=== PATIENT | female | born 1990 | race Caucasian/White ===

== ENCOUNTER 2017-10-07 17:07 | Inpatient (IN) | payer BC ==
[2017-10-07] MEDS ORDERED: Misoprostol 25 MCG (1/4 of 100 MCG) Tab VAG PRN (17:50)
[2017-10-07] MEDS ORDERED: Terbutaline 1 MG/ML SDV SUBCUT PRN (17:50)
[2017-10-07] MEDS ORDERED: Methylergonovine 0.2 MG/1 ML Amp IM PRN (18:00)
[2017-10-07] MEDS ORDERED: Nalbuphine 10 MG/1 ML Vial IVPUSH PRN (18:00)
[2017-10-07] MEDS ORDERED: Misoprostol 25 MCG (1/4 of 100 MCG) Tab VAG SCH (18:00)
[2017-10-07] MEDS ORDERED: Butorphanol 1 MG/ML SDV IVPUSH PRN (18:00)
[2017-10-07] MEDS ORDERED: Water For Irrigation,Sterile 1,000 ML Container IRR PRN (18:00)
[2017-10-07] MEDS ORDERED: Oxytocin/0.9 % Sodium Chloride 30 UNIT/500 ML BAG IV SCH ×2 (18:00)
[2017-10-07] MEDS ORDERED: Carboprost Tromethamine 250 MCG/1 ML Amp IM PRN (18:00)
[2017-10-07] MEDS ORDERED: Misoprostol 200 MCG Tab PO PRN (18:00)
[2017-10-07] MEDS ORDERED: Sodium Chloride 0.9% 2.5 ML Syringe FLUSH PRN (18:00)
[2017-10-07] MEDS ORDERED: Sodium Chloride 0.9% 10 ML Syringe FLUSH PRN (18:00)
[2017-10-07] MEDS ORDERED: Lidocaine 1% 50 ML MDV INJECT PRN (18:00)
[2017-10-07] MEDS ORDERED: Misoprostol 25 MCG (1/4 of 100 MCG) Tab PO SCH (18:00)
[2017-10-07] MEDS: Lactated Ringers 1,000 ML IV SCH (18:25)
[2017-10-08] MEDS: Lactated Ringers 1,000 ML IV SCH ×5 (04:50→18:05)
[2017-10-08] MEDS ORDERED: Ondansetron 4 MG/2 ML SDV IVPUSH ONE (08:54)
[2017-10-08] MEDS: Metoprolol Succinate 25 MG Tab.ER PO SCH ×2 (10:52→21:52)
[2017-10-08] MEDS ORDERED: Ropivacaine HCl/PF 100 ML ONE (11:18)
[2017-10-08] MEDS ORDERED: fentaNYL 100 MCG/2 ML SDV ONE (11:18)
--- NOTE | 2017-10-08 11:22 | PCM.PREANE ---
Preanesthetic Assessment - Anesthesia/Transfusion/Family Hx Anesthesia History: Prior Anesthesia Without Reaction Transfusion History: No Prior Transfusion(s) - Review of Systems General: No Symptoms Pulmonary: No Symptoms Cardiovascular: No Symptoms Gastrointestinal: No Symptoms Neurological: No Symptoms Other: Reports: None - Physical Assessment Pulse: 82 Blood Pressure: 120/50 Vital Signs: Last Vital Signs Temp Pulse 82 10/08/17 10:52 Resp BP 120/50 L 10/08/17 10:52 Pulse Ox Height: 5 ft 6 in Weight: 77.564 kg ASA Class: 2 Mental Status: Alert & Oriented x3 Airway Class: Mallampati = 2 Dentition: Reports: Normal Dentition Thyro-Mental Finger Breadths: 3 Mouth Opening Finger Breadths: 3 ROM/Head Extension: Full Lungs: Clear to Auscultation, Normal Respiratory Effort Cardiovascular: Regular Rate, Regular Rhythm - Lab Values: Laboratory Last Values WBC 10.24 K/uL (4.0-11.0) 10/07/17 18:18 RBC 4.61 M/uL (4.30-5.90) 10/07/17 18:18 Hgb 11.6 g/dL (12.0-16.0) L 10/07/17 18:18 Hct 34.9 % (36.0-46.0) L 10/07/17 18:18 MCV 75.7 fL (80.0-98.0) L 10/07/17 18:18 MCH 25.2 pg (27.0-32.0) L 10/07/17 18:18 MCHC 33.2 g/dL (31.0-37.0) 10/07/17 18:18 RDW Std Deviation 34.7 fl (28.0-62.0) 10/07/17 18:18 RDW Coeff of [place] 13 % (11.0-15.0) 10/07/17 18:18 Plt Count 160 K/uL (150-400) 10/07/17 18:18 MPV 11.50 fL (7.40-12.00) 10/07/17 18:18 Nucleated RBC % 0.0 /100WBC 10/07/17 18:18 Nucleated RBCs # 0 K/uL 10/07/17 18:18 Blood Type O NEGATIVE 10/07/17 18:18 Antibody Screen NEGATIVE 10/07/17 18:18 - Allergies Allergies/Adverse Reactions: Allergies Allergy/AdvReac Type Severity Reaction Status Date / Time No Known Allergies Allergy Verified 10/07/17 17:40 - Acknowledgements Anesthesia Type Planned: Epidural Pt an Appropriate Candidate for the Planned Anesthesia: Yes Alternatives and Risks of Anesthesia Discussed w Pt/Guardian: Yes Pt/Guardian Understands and Agrees with Anesthesia Plan: Yes PreAnesthesia Questionnaire HEENT History: Reports: None Cardiovascular History: Reports: Other (See Below) Other Cardiovascular History: POTS Respiratory History: Reports: None Gastrointestinal History: Reports: GERD Genitourinary History: Reports: None 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: 0 LMP (Approximate): Musculoskeletal History: Reports: None Neurological History: Reports: None Psychiatric History: Reports: None Endocrine/Metabolic History: Reports: None Hematologic History: Reports: None Immunologic History: Reports: None Oncologic (Cancer) History: Reports: None Dermatologic History: Reports: None - Infectious Disease History Infectious Disease History: Reports: Chicken Pox - Past Surgical History HEENT Surgical History: Reports: Other (See Below) Other HEENT Surgeries/Procedures: [place] teeth extraction Female Surgical History: Reports: Breast Implant - SUBSTANCE USE Smoking Status *Q: Never Smoker Second Hand Smoke Exposure: No Recreational Drug Use History: No - CURRENT (IN HOUSE) MEDS Current Meds: Current Medications Butorphanol Tartrate (Stadol) 1 mg IVPUSH Q1H PRN PRN Reason: Pain Last Admin: 10/08/17 09:02 Dose: 1 mg Carboprost Tromethamine (Hemabate Ds) 250 mcg IM ASDIRECTED PRN PRN Reason: Post Hemorrhage Oxytocin/Sodium Chloride (Oxytocin 30 Unit/500 Ml-Ns) 30 unit in 500 mls @ 2 mls/hr IV TITRATE MILEY; 2 MUNITS/MIN PRN Reason: Protocol Last Titration: 10/08/17 10:41 Dose: 0 munits/min, 0 mls/hr Lactated Ringer's (Ringers, Lactated) 1,000 mls @ 80 mls/hr IV ASDIRECTED MILEY Last Admin: 10/08/17 10:29 Dose: 80 mls/hr Oxytocin/Sodium Chloride (Oxytocin 30 Unit/500 Ml-Ns) 30 unit in 500 mls @ 500 mls/hr IV TITRATE MILEY Lidocaine HCl (Xylocaine 1%) 50 ml INJECT .ONCE PRN PRN Reason: Laceration repair Methylergonovine Maleate (Methergine) 0.2 mg IM ASDIRECTED PRN PRN Reason: Post Hemorrhage Metoprolol Succinate (Toprol Xl) 12.5 mg PO BID MILEY Stop: 10/11/17 10:00 Last Admin: 10/08/17 10:52 Dose: 12.5 mg Misoprostol (Cytotec) 25 mcg VAG .ONCE MILEY Last Admin: 10/07/17 18:41 Dose: 25 mcg Misoprostol (Cytotec) 25 mcg VAG Q6H PRN PRN Reason: Cervical Ripening Last Admin: 10/08/17 00:34 Dose: 25 mcg Misoprostol (Cytotec) 25 mcg PO .ONCE MILEY Last Admin: 10/07/17 18:41 Dose: 25 mcg Misoprostol (Cytotec) 200 mcg PO .ONCE PRN PRN Reason: Post Hemorrhage Nalbuphine HCl (Nubain) 10 mg IVPUSH Q1H PRN PRN Reason: Pain (severe 7-10) Last Admin: 10/08/17 10:02 Dose: 10 mg Sodium Chloride (Saline Flush) 10 ml FLUSH ASDIRECTED PRN PRN Reason: Keep Vein Open Sodium Chloride (Saline Flush) 2.5 ml FLUSH ASDIRECTED PRN PRN Reason: Keep Vein Open Sterile Water (Sterile Water For Irrigation) 1,000 ml IRR ASDIRECTED PRN PRN Reason: delivery Terbutaline Sulfate (Brethine) 0.25 mg SUBCUT ASDIRECTED PRN PRN Reason: Tacysystole Discontinued Medications Ondansetron HCl (Zofran) 4 mg IVPUSH ONETIME ONE Stop: 10/08/17 08:55 Last Admin: 10/08/17 09:06 Dose: 4 mg
[2017-10-08] MEDS ORDERED: ePHEDrine 50 MG/ML SDV ONE (11:43)
[2017-10-08] MEDS ORDERED: Sodium Chloride 0.9% Irrigation 500 ML Container IRR PRN (16:54)
[2017-10-08] MEDS ORDERED: Sodium Chloride 0.9% Irrigation 1,000 ML Container IRR PRN (17:00)
[2017-10-08] MEDS ORDERED: ceFAZolin 2 GM in Premix Bag 1 BAG IV ONE (21:17)
[2017-10-08] MEDS ORDERED: Ibuprofen 400 MG Tab PO PRN (21:17)
[2017-10-08] MEDS ORDERED: Witch Hazel Medicated Pads 40/Jar TOP PRN (21:17)
[2017-10-08] MEDS ORDERED: Lanolin 100% Cream 7 GM Tube TOP PRN (21:17)
[2017-10-08] MEDS ORDERED: Bisacodyl 10 MG Supp RECTAL PRN (21:17)
[2017-10-08] MEDS ORDERED: Acetaminophen 500 MG Tab PO PRN ×2 (21:17)
[2017-10-08] MEDS ORDERED: Benzocaine/Menthol 20%-0.5% Spray 78 GM Cannister TOP PRN (21:17)
[2017-10-08] MEDS: Docusate Sodium 100 MG Cap PO PRN (21:51)
[2017-10-08] MEDS: Ibuprofen 800 MG Tab PO PRN (21:53)
[2017-10-09] MEDS: oxyCODONE 5 MG Tab PO PRN ×3 (01:32→22:53)
[2017-10-09] MEDS: Docusate Sodium 100 MG Cap PO PRN (06:47)
--- NOTE | 2017-10-09 08:28 | OR ---
SURGEON: Tanya Moreland MD DATE OF PROCEDURE: 10/08/2017 PREOPERATIVE DIAGNOSES: 1. Postdates at 41 weeks and 6 days. 2. Asymmetric growth. POSTOPERATIVE DIAGNOSES: 1. Postdates at 41 weeks and 6 days. 2. Asymmetric growth. 3. Delivered. PROCEDURE:. 1. Spontaneous vaginal delivery. 2. Manual removal of placenta 3. Repair of perineal lacerations. ANESTHESIA: Epidural. ESTIMATED BLOOD LOSS: 200 mL. COMPLICATIONS: None. DISPOSITION: Mother and baby stable in Labor and Delivery room, bonding. FINDINGS: Male , weight 3170 g, score 7 and 8 at 1 and 5 minutes respectively. Grossly normal small placenta with flimsy, thin 3-vessel cord. Ist degree vaginal laceration and left labial laceration. BRIEF HISTORY: The patient is a 27-year-old, primigravida, who was admitted at 41 weeks and 5 days gestation for induction of labor secondary to postdates. The patient's care was complicated by asymmetric growth; overall growth was normal on the 30the percentile,but the AC was lagging behind at less than 3rd percentile. surveillance was always reassuring. GBS negative. The patient declined induction earlier than than 42 weeks gestation. She also was on B- blockers for Postural Orthostatic Hypotension and Paraoxysmal Supraventricular tachycardia- which controlled her symptoms well. The patient was admitted overnight for induction of labor. She received Cytotec for cervical ripening and oxytocin infusion was commenced in the early hours of the morning. Artificial rupture of membranes was performed at 2cm dilatated, 70% effacement- with clear amniotic fluid noted. Throughout the day, we had to stop the oxytocin infusion several times, due to recurrent deep variable decelerations with occasional late decelerations. The maximum Pitocin that we were able to get to was 4 milliunits per minute. Despite irregular contractions of every 1 to 4 minutes, the patient made steady progress and slowly progressed to 8 cm, at this time due to recurrent variable decelerations, amnioinfusion was commenced. With amnioinfusion, the strip improved, and she eventually got to full dilatation. She commenced active pushing. She pushed a little bit over an hour, bringing the head down to a +4 station and was set up for delivery in modified dorsolithotomy position. [facility] Manager closer on, Dr Kingston, was called for delivery DESCRIPTION OF PROCEDURE: She had a spontaneous vaginal delivery of a live male infant in direct occipital anterior position, no nuchal cord, clear amniotic fluid at delivery. Anterior and posterior shoulders and the rest of the baby were delivered without difficulty. The baby was stunned at delivery, Dr Kingston began stimulating him on the perineum and the cord was quickly double clamped and cut and he was immediately taken to the warmer With delivery of the infant, oxytocin infusion was commenced for active management of third stage of labor. Cord blood and gas samples were obtained. The placenta was then delivered by manual extraction, due to a partial separation of the very flimsy cord. Uterine cavity was empty. The placenta, although it was small and rugged, appeared to be complete and intact. Examination of the perineum revealed a left labial laceration and a midline Ist degree vaginal laceration. Uterine massage was performed. The uterus was found to be well contracted below the umbilicus. These lacerations were repaired with 3-0 Vicryl sutures and were hemostatic post repair. The patient tolerated the procedure well. Sponge, instrument, and needle counts were correct at the end of the delivery. ADUMVIV / MODL /[id number] KERON
[2017-10-09] MEDS: Metoprolol Succinate 25 MG Tab.ER PO SCH ×2 (09:07→21:39)
[2017-10-09] MEDS: Ibuprofen 800 MG Tab PO PRN ×3 (09:13→22:53)
--- NOTE | 2017-10-09 10:10 | PCM.PNPP ---
- General Info Date of Service: 10/09/17 Functional Status: Reports: Pain Controlled, Tolerating Diet, Ambulating, Urinating - Review of Systems General: Denies: Fever, Chills HEENT: Denies: Headaches Pulmonary: Denies: Shortness of Breath, Pleuritic Chest Pain, Cough Cardiovascular: Denies: Chest Pain, Palpitations, Dyspnea on Exertion Gastrointestinal: Denies: Abdominal Pain Genitourinary: Denies: Dysuria, Incontinence, Retention Neurological: Reports: No Symptoms Psychiatric: Reports: No Symptoms - General Info Date of Service: 10/09/17 - Patient Data Vital Signs - Most Recent: Last Vital Signs Temp 36.3 C 10/09/17 08:00 Pulse 71 10/09/17 09:07 Resp 16 10/09/17 08:00 BP 95/57 L 10/09/17 09:07 Pulse Ox 97 10/09/17 08:00 Weight - Most Recent: 171 lb I&O - Last 24 Hours: Intake & Output 10/08/17 10/09/17 10/09/17 22:59 06:59 14:59 Intake Total 850 Output Total 1000 Balance -150 Lab Results - Last 24 Hours: Laboratory Results - last 24 hr 10/09/17 Range/Units 05:10 Hgb 9.4 L (12.0-16.0) g/dL Hct 28.8 L (36.0-46.0) % Med Orders - Current: Current Medications Acetaminophen (Tylenol Extra Strength) 500 mg PO Q4H PRN PRN Reason: Pain Acetaminophen (Tylenol Extra Strength) 1,000 mg PO Q4H PRN PRN Reason: Pain Last Admin: 10/09/17 05:28 Dose: 1,000 mg Benzocaine/Menthol (Dermoplast Pain Relief 20%-0.5% [place]) 0 gm TOP ASDIRECTED PRN PRN Reason: Perineal Comfort Measure Last Admin: 10/08/17 21:55 Dose: 1 canister Bisacodyl (Dulcolax) 10 mg RECTAL .ONCE PRN PRN Reason: Constipation Docusate Sodium (Colace) 100 mg PO BID PRN PRN Reason: Constipation Last Admin: 10/09/17 06:47 Dose: 100 mg Emollient Ointment (Lansinoh Hpa) 0 gm TOP ASDIRECTED PRN PRN Reason: Sore Nipples Last Admin: 10/08/17 21:55 Dose: 1 tube Ibuprofen (Motrin) 400 mg PO Q4H PRN PRN Reason: Pain Ibuprofen (Motrin) 800 mg PO Q6H PRN PRN Reason: Pain Last Admin: 10/09/17 09:13 Dose: 800 mg Metoprolol Succinate (Toprol Xl) 12.5 mg PO BID MILEY Stop: 10/11/17 10:00 Last Admin: 10/09/17 09:07 Dose: 12.5 mg Oxycodone HCl (Oxycodone) 5 mg PO Q2H PRN PRN Reason: Pain Last Admin: 10/09/17 05:27 Dose: 5 mg Witch Edwina (Tucks) 1 pad TOP ASDIRECTED PRN PRN Reason: comfort care Last Admin: 10/08/17 21:54 Dose: 1 tub Discontinued Medications Butorphanol Tartrate (Stadol) 1 mg IVPUSH Q1H PRN PRN Reason: Pain Last Admin: 10/08/17 09:02 Dose: 1 mg Carboprost Tromethamine (Hemabate Ds) 250 mcg IM ASDIRECTED PRN PRN Reason: Post Hemorrhage Ephedrine Sulfate (Ephedrine Sulfate) Confirm Administered Dose 50 mg .ROUTE .STK-MED ONE Stop: 10/08/17 11:44 Last Admin: 10/09/17 10:00 Dose: Not Given Fentanyl (Sublimaze) Confirm Administered Dose 100 mcg .ROUTE .STK-MED ONE Stop: 10/08/17 11:19 Last Admin: 10/09/17 10:00 Dose: Not Given Oxytocin/Sodium Chloride (Oxytocin 30 Unit/500 Ml-Ns) 30 unit in 500 mls @ 2 mls/hr IV TITRATE MILEY; 2 MUNITS/MIN PRN Reason: Protocol Last Titration: 10/08/17 20:42 Dose: 500 mls/hr Lactated Ringer's (Ringers, Lactated) 1,000 mls @ 80 mls/hr IV ASDIRECTED MILEY Last Admin: 10/08/17 18:05 Dose: 80 mls/hr Oxytocin/Sodium Chloride (Oxytocin 30 Unit/500 Ml-Ns) 30 unit in 500 mls @ 500 mls/hr IV TITRATE MILEY Ropivacaine (Naropin 0.2%) Confirm Administered Dose 100 mls @ as directed .ROUTE .STK-MED ONE Stop: 10/08/17 11:19 Last Admin: 10/09/17 10:00 Dose: Not Given Cefazolin Sodium/Dextrose 2 gm (/ Premix) 50 mls @ 100 mls/hr IV ONETIME ONE Stop: 10/08/17 21:46 Last Admin: 10/08/17 21:59 Dose: 100 mls/hr Lidocaine HCl (Xylocaine 1%) 50 ml INJECT .ONCE PRN PRN Reason: Laceration repair Methylergonovine Maleate (Methergine) 0.2 mg IM ASDIRECTED PRN PRN Reason: Post Hemorrhage Misoprostol (Cytotec) 25 mcg VAG .ONCE MILEY Last Admin: 10/07/17 18:41 Dose: 25 mcg Misoprostol (Cytotec) 25 mcg VAG Q6H PRN PRN Reason: Cervical Ripening Last Admin: 10/08/17 00:34 Dose: 25 mcg Misoprostol (Cytotec) 25 mcg PO .ONCE MILEY Last Admin: 10/07/17 18:41 Dose: 25 mcg Misoprostol (Cytotec) 200 mcg PO .ONCE PRN PRN Reason: Post Hemorrhage Nalbuphine HCl (Nubain) 10 mg IVPUSH Q1H PRN PRN Reason: Pain (severe 7-10) Last Admin: 10/08/17 10:02 Dose: 10 mg Ondansetron HCl (Zofran) 4 mg IVPUSH ONETIME ONE Stop: 10/08/17 08:55 Last Admin: 10/08/17 09:06 Dose: 4 mg Sodium Chloride (Saline Flush) 10 ml FLUSH ASDIRECTED PRN PRN Reason: Keep Vein Open Sodium Chloride (Saline Flush) 2.5 ml FLUSH ASDIRECTED PRN PRN Reason: Keep Vein Open Sodium Chloride (Sodium Chloride 0.9%) 500 ml IRR ASDIRECTED PRN PRN Reason: amnioinfusion Sodium Chloride (Sodium Chloride 0.9%) 1,000 ml IRR ASDIRECTED PRN PRN Reason: amnioinfusion Last Admin: 10/08/17 17:00 Dose: 1,000 ml Sterile Water (Sterile Water For Irrigation) 1,000 ml IRR ASDIRECTED PRN PRN Reason: delivery Last Admin: 10/08/17 20:40 Dose: 1,000 ml Terbutaline Sulfate (Brethine) 0.25 mg SUBCUT ASDIRECTED PRN PRN Reason: Tacysystole - Infant Interaction Disposition, : [place] in Room with Family Infant Feeding: Breastfed ; Nursed Well, Continues to Breastfeed Support Person: - Recovery Exam Fundal Tone: Firm Fundal Level: 1 Fingerbreadths Below Umbilicus Fundal Placement: Midline Lochia Amount: Scant Lochia Color: Rubra/Red Perineum Description: Other (see below) Other Perinuem Description: 1st degree laceration Episiotomy/Laceration: Approximated Bladder Status: Voiding Urinary Elimination: Voided - Exam General: Alert, Oriented Lungs: Clear to Auscultation, Normal Respiratory Effort Cardiovascular: Regular Rate, Regular Rhythm GI/Abdominal Exam: Soft, Non-Tender Extremities: Non-Tender, Pedal Edema Skin: Warm Psy/Mental Status: Alert, Normal Affect, Normal Mood - Problem List & Annotations (1) Vaginal delivery SNOMED Code(s): 799868732 Code(s): O80 - ENCOUNTER FOR FULL-TERM UNCOMPLICATED DELIVERY Status: Acute Current Visit: Yes - Problem List Review Problem List Initiated/Reviewed/Updated: Yes - My Orders Last 24 Hours: My Active Orders 10/08/17 21:17 Patient Status [ADT] Routine May Shower [RC] ASDIRECTED Up ad Nasrin [RC] ASDIRECTED Vital Signs [RC] PER UNIT ROUTINE Acetaminophen [Tylenol Extra Strength] 1,000 mg PO Q4H PRN Acetaminophen [Tylenol Extra Strength] 500 mg PO Q4H PRN Benzocaine/Menthol [Dermoplast Pain Relief 20%-0.5% [place]] 0 gm TOP ASDIRECTED PRN Bisacodyl [Dulcolax] 10 mg RECTAL .ONCE PRN Docusate Sodium [Colace] 100 mg PO BID PRN Ibuprofen [Motrin] 400 mg PO Q4H PRN Ibuprofen [Motrin] 800 mg PO Q6H PRN Lanolin [Lansinoh HPA] See Dose Instructions TOP ASDIRECTED PRN Witch Edwina [Tucks] 1 pad TOP ASDIRECTED PRN oxyCODONE 5 mg PO Q2H PRN Assess Lochia [WOMSER] Per Unit Routine Assess Uterine Involution [WOMSER] Per Unit Routine Breast Pump [WOMSER] Per Unit Routine Peripheral IV Discontinue [OM.PC] Routine Resuscitation Status Routine 10/08/17 21:18 Perineal Care [OM.PC] Per Unit Routine 10/09/17 Breakfast Regular Diet [DIET] - Assessment Assessment:: PPD#1 s/p , stable and afebrile - Plan Plan:: Delivery was late last evenin, and baby is being kept for another 24 hours before circumcision, so would stay in another night. She is doing well, continue routine care
--- NOTE | 2017-10-09 16:53 | PCM48HPAN ---
Post Anesthesia Note - EVALUATION WITHIN 48HRS OF ANESTHETIC Vital Signs in Normal Range: Yes Patient Participated in Evaluation: Yes Respiratory Function Stable: Yes Airway Patent: Yes Cardiovascular Function Stable: Yes Hydration Status Stable: Yes Pain Control Satisfactory: Yes Nausea and Vomiting Control Satisfactory: Yes Mental Status Recovered: Yes
--- NOTE | 2017-10-10 07:31 | PCM.PNPP ---
- General Info Date of Service: 10/10/17 Functional Status: Reports: Pain Controlled, Tolerating Diet, Ambulating, Urinating - Review of Systems General: Reports: No Symptoms HEENT: Reports: No Symptoms Pulmonary: Reports: No Symptoms Cardiovascular: Reports: No Symptoms Gastrointestinal: Reports: No Symptoms Genitourinary: Reports: No Symptoms Musculoskeletal: Reports: No Symptoms Skin: Reports: No Symptoms Neurological: Reports: No Symptoms Psychiatric: Reports: No Symptoms - Patient Data Vital Signs - Most Recent: Last Vital Signs Temp 36.7 C 10/10/17 04:00 Pulse 74 10/10/17 04:00 Resp 18 10/10/17 04:00 BP 108/55 L 10/10/17 04:00 Pulse Ox 98 10/10/17 04:00 Weight - Most Recent: 77.564 kg Med Orders - Current: Current Medications Acetaminophen (Tylenol Extra Strength) 500 mg PO Q4H PRN PRN Reason: Pain Acetaminophen (Tylenol Extra Strength) 1,000 mg PO Q4H PRN PRN Reason: Pain Last Admin: 10/09/17 05:28 Dose: 1,000 mg Benzocaine/Menthol (Dermoplast Pain Relief 20%-0.5% [place]) 0 gm TOP ASDIRECTED PRN PRN Reason: Perineal Comfort Measure Last Admin: 10/08/17 21:55 Dose: 1 canister Bisacodyl (Dulcolax) 10 mg RECTAL .ONCE PRN PRN Reason: Constipation Docusate Sodium (Colace) 100 mg PO BID PRN PRN Reason: Constipation Last Admin: 10/09/17 06:47 Dose: 100 mg Emollient Ointment (Lansinoh Hpa) 0 gm TOP ASDIRECTED PRN PRN Reason: Sore Nipples Last Admin: 10/08/17 21:55 Dose: 1 tube Ibuprofen (Motrin) 400 mg PO Q4H PRN PRN Reason: Pain Ibuprofen (Motrin) 800 mg PO Q6H PRN PRN Reason: Pain Last Admin: 10/09/17 22:53 Dose: 800 mg Metoprolol Succinate (Toprol Xl) 12.5 mg PO BID MILEY Stop: 10/11/17 10:00 Last Admin: 10/09/17 21:39 Dose: 12.5 mg Oxycodone HCl (Oxycodone) 5 mg PO Q2H PRN PRN Reason: Pain Last Admin: 10/09/17 22:53 Dose: 5 mg Witch Edwina (Tucks) 1 pad TOP ASDIRECTED PRN PRN Reason: comfort care Last Admin: 10/08/17 21:54 Dose: 1 tub Discontinued Medications Butorphanol Tartrate (Stadol) 1 mg IVPUSH Q1H PRN PRN Reason: Pain Last Admin: 10/08/17 09:02 Dose: 1 mg Carboprost Tromethamine (Hemabate Ds) 250 mcg IM ASDIRECTED PRN PRN Reason: Post Hemorrhage Ephedrine Sulfate (Ephedrine Sulfate) Confirm Administered Dose 50 mg .ROUTE .STK-MED ONE Stop: 10/08/17 11:44 Last Admin: 10/09/17 10:00 Dose: Not Given Fentanyl (Sublimaze) Confirm Administered Dose 100 mcg .ROUTE .STK-MED ONE Stop: 10/08/17 11:19 Last Admin: 10/09/17 10:00 Dose: Not Given Oxytocin/Sodium Chloride (Oxytocin 30 Unit/500 Ml-Ns) 30 unit in 500 mls @ 2 mls/hr IV TITRATE MILEY; 2 MUNITS/MIN PRN Reason: Protocol Last Titration: 10/08/17 20:42 Dose: 500 mls/hr Lactated Ringer's (Ringers, Lactated) 1,000 mls @ 80 mls/hr IV ASDIRECTED MILEY Last Admin: 10/08/17 18:05 Dose: 80 mls/hr Oxytocin/Sodium Chloride (Oxytocin 30 Unit/500 Ml-Ns) 30 unit in 500 mls @ 500 mls/hr IV TITRATE MILEY Ropivacaine (Naropin 0.2%) Confirm Administered Dose 100 mls @ as directed .ROUTE .STK-MED ONE Stop: 10/08/17 11:19 Last Admin: 10/09/17 10:00 Dose: Not Given Cefazolin Sodium/Dextrose 2 gm (/ Premix) 50 mls @ 100 mls/hr IV ONETIME ONE Stop: 10/08/17 21:46 Last Admin: 10/08/17 21:59 Dose: 100 mls/hr Lidocaine HCl (Xylocaine 1%) 50 ml INJECT .ONCE PRN PRN Reason: Laceration repair Methylergonovine Maleate (Methergine) 0.2 mg IM ASDIRECTED PRN PRN Reason: Post Hemorrhage Misoprostol (Cytotec) 25 mcg VAG .ONCE MILEY Last Admin: 10/07/17 18:41 Dose: 25 mcg Misoprostol (Cytotec) 25 mcg VAG Q6H PRN PRN Reason: Cervical Ripening Last Admin: 10/08/17 00:34 Dose: 25 mcg Misoprostol (Cytotec) 25 mcg PO .ONCE MILEY Last Admin: 10/07/17 18:41 Dose: 25 mcg Misoprostol (Cytotec) 200 mcg PO .ONCE PRN PRN Reason: Post Hemorrhage Nalbuphine HCl (Nubain) 10 mg IVPUSH Q1H PRN PRN Reason: Pain (severe 7-10) Last Admin: 10/08/17 10:02 Dose: 10 mg Ondansetron HCl (Zofran) 4 mg IVPUSH ONETIME ONE Stop: 10/08/17 08:55 Last Admin: 10/08/17 09:06 Dose: 4 mg Sodium Chloride (Saline Flush) 10 ml FLUSH ASDIRECTED PRN PRN Reason: Keep Vein Open Sodium Chloride (Saline Flush) 2.5 ml FLUSH ASDIRECTED PRN PRN Reason: Keep Vein Open Sodium Chloride (Sodium Chloride 0.9%) 500 ml IRR ASDIRECTED PRN PRN Reason: amnioinfusion Sodium Chloride (Sodium Chloride 0.9%) 1,000 ml IRR ASDIRECTED PRN PRN Reason: amnioinfusion Last Admin: 10/08/17 17:00 Dose: 1,000 ml Sterile Water (Sterile Water For Irrigation) 1,000 ml IRR ASDIRECTED PRN PRN Reason: delivery Last Admin: 10/08/17 20:40 Dose: 1,000 ml Terbutaline Sulfate (Brethine) 0.25 mg SUBCUT ASDIRECTED PRN PRN Reason: Tacysystole - Interaction Disposition, : [place] in Room with Family Feeding: Breastfed ; Nursed Well, Continues to Breastfeed Support Person: - Recovery Exam Fundal Tone: Firm Fundal Level: 1 Fingerbreadths Below Umbilicus Fundal Placement: Midline Lochia Amount: Scant Lochia Color: Rubra/Red Perineum Description: Other (see below) Other Perinuem Description: 1st degree laceration Episiotomy/Laceration: Approximated Bladder Status: Voiding Urinary Elimination: Voided - Exam General: Alert, Oriented Neck: Supple GI/Abdominal Exam: Soft, Non-Tender, No Organomegaly, No Distention Extremities: Normal Inspection, Normal Range of Motion, Non-Tender, No Pedal Edema, Normal Capillary Refill Skin: Warm, Dry, Intact Neurological: No New Focal Deficit Psy/Mental Status: Alert, Normal Affect, Normal Mood - Problem List Review Problem List Initiated/Reviewed/Updated: Yes - My Orders Last 24 Hours: My Active Orders 10/10/17 07:28 Ready for Discharge [RC] PER UNIT ROUTINE - Assessment Assessment:: PPD#2 s/p , stable and afebrile, would like to go home today. - Plan Plan:: Stable, baby Rh neg, does not need rhogam. Discharge today after circumcision. Discharge instructions reviewed.
[2017-10-10] MEDS: Ibuprofen 800 MG Tab PO PRN (10:25)
[2017-10-10] MEDS: Docusate Sodium 100 MG Cap PO PRN (10:25)
[2017-10-10] MEDS: Metoprolol Succinate 25 MG Tab.ER PO SCH (10:27)
== END 2017-10-10 12:45 | disposition home or self-care (01) | DRG 542 ==
LOC: MW.OBCHECK 17:07 → MW.OB 17:14 → MW.OBCHECK 18:00 → OBSVTOIN 10-08 20:42 → MW.OB 10-09 00:50
PROVIDERS: ADMIT Obstetrics & Gynecology; ATTEND Obstetrics & Gynecology
PROC: 10E0XZZ Delivery of Products of Conception, External Approach (ICD-10-PCS; principal; 2017-10-08)
PROC: 3E0P7VZ Introduction of Hormone into Female Reproductive, Via Natural or Artificial Opening (ICD-10-PCS; 2017-10-08)
PROC: 3E0P3VZ Introduction of Hormone into Female Reproductive, Percutaneous Approach (ICD-10-PCS; 2017-10-08)
PROC: 10907ZC Drainage of Amniotic Fluid, Therapeutic from Products of Conception, Via Natural or Artificial Opening (ICD-10-PCS; 2017-10-08)
PROC: 0DQR0ZZ Repair Anal Sphincter, Open Approach (ICD-10-PCS; 2017-10-08)
DX: O48.0 Post-term pregnancy (principal); O36.5930 Maternal care for other known or suspected poor fetal growth, third trimester, not applicable or unspecified; O70.20 Third degree perineal laceration during delivery, unspecified; Z3A.41 41 weeks gestation of pregnancy; Z37.0 Single live birth
CPT/HCPCS: 36415; 51702; 59025; 59409; 85014; 85018; 85027; 86850; 86900; 86901; 88307; A9270-GY; J0595; J0690; J2300; J2405; J2590; J2795; J3010; J7120

== ENCOUNTER 2020-01-04 05:06 | Inpatient (IN) | payer BC ==
[2020-01-04] MEDS ORDERED: Water For Irrigation,Sterile 1,000 ML Container IRR PRN (05:23)
[2020-01-04] MEDS ORDERED: Nalbuphine 10 MG/1 ML Vial IVPUSH PRN (05:23)
[2020-01-04] MEDS ORDERED: Sodium Chloride 0.9% 2.5 ML Syringe FLUSH PRN (05:23)
[2020-01-04] MEDS ORDERED: Carboprost Tromethamine 250 MCG/1 ML Amp IM PRN (05:23)
[2020-01-04] MEDS ORDERED: Ondansetron 4 MG/2 ML SDV IVPUSH PRN (05:23)
[2020-01-04] MEDS ORDERED: Tranexamic Acid 1,000 MG in Sodium Chloride 0.9% 100 ML IV PRN (05:23)
[2020-01-04] MEDS ORDERED: Sodium Chloride 0.9% 10 ML Syringe FLUSH PRN (05:23)
[2020-01-04] MEDS ORDERED: Butorphanol 1 MG/ML SDV IVPUSH PRN (05:23)
[2020-01-04] MEDS ORDERED: Lidocaine 1% 50 ML MDV INJECT PRN (05:23)
[2020-01-04] MEDS ORDERED: Sodium Chloride 0.9% 10 ML SDV IV PRN (05:23)
[2020-01-04] MEDS ORDERED: Misoprostol 200 MCG Tab PO PRN (05:23)
[2020-01-04] MEDS ORDERED: Methylergonovine 0.2 MG/1 ML Amp IM PRN (05:23)
[2020-01-04] MEDS ORDERED: Terbutaline 1 MG/ML SDV SUBCUT PRN (05:26)
[2020-01-04] MEDS ORDERED: Misoprostol 25 MCG (1/4 of 100 MCG) Tab VAG PRN ×2 (05:26)
[2020-01-04] MEDS ORDERED: Misoprostol 25 MCG (1/4 of 100 MCG) Tab PO ONE (05:28)
[2020-01-04] MEDS ORDERED: Oxytocin/0.9 % Sodium Chloride 30 UNIT/500 ML BAG IV SCH ×2 (05:30)
[2020-01-04] MEDS: Lactated Ringers 1,000 ML IV SCH ×3 (06:22→17:38)
--- NOTE | 2020-01-04 08:25 | PCM.LDHP ---
L&D History of Present Illness - General Date of Service: 01/04/20 Admit Problem/Dx: Patient Status Order with Admit Dx/Problem 01/04/20 05:23 Patient Status [ADT] Routine Admission Diagnosis/Problem Admission Diagnosis/Problem 01/04/20 08:21 29yo EDC 01/04/2020 40 0/7wks O+, Rubella pending, GBS neg. IOL term 01/04/20 08:24 Source of Information: Patient History Limitations: Reports: No Limitations - History of Present Illness Improves with: Reports: None Worsens with: Reports: None Associated Symptoms: Reports: N - Related Data Allergies/Adverse Reactions: Allergies Allergy/AdvReac Type Severity Reaction Status Date / Time No Known Allergies Allergy Verified 10/07/17 17:40 Home Medications: Home Meds Metoprolol Tartrate 12.5 mg PO DAILY 01/04/20 [History] Past Medical History HEENT History: Reports: None Cardiovascular History: Reports: Other (See Below) Other Cardiovascular History: POTS Respiratory History: Reports: None Gastrointestinal History: Reports: GERD Genitourinary History: Reports: None 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: Musculoskeletal History: Reports: None Neurological History: Reports: Concussion Psychiatric History: Reports: Anxiety Endocrine/Metabolic History: Reports: None Hematologic History: Reports: None Immunologic History: Reports: None Oncologic (Cancer) History: Reports: None Dermatologic History: Reports: None - Infectious Disease History Infectious Disease History: Reports: Chicken Pox - Past Surgical History HEENT Surgical History: Reports: Other (See Below) Other HEENT Surgeries/Procedures: [place] teeth extraction GI Surgical History: Reports: None Female Surgical History: Reports: Breast Implant Musculoskeletal Surgical History: Reports: None Social & Family History - Family History HEENT: Reports: Cataract OBGYN: Reports: Endocrine/Metabolic: Reports: Hypothyroidism Dermatologic: Reports: Other (See Below) Other Dermatologic Family History: Mother has benign growths removed - Tobacco Use Smoking Status *Q: Never Smoker Second Hand Smoke Exposure: No - Caffeine Use Caffeine Use: Reports: Coffee - Recreational Drug Use Recreational Drug Use: No H&P Review of Systems - Review of Systems: Review Of Systems: See Below General: Reports: No Symptoms HEENT: Reports: No Symptoms Pulmonary: Reports: No Symptoms Cardiovascular: Reports: No Symptoms Gastrointestinal: Reports: No Symptoms Genitourinary: Reports: No Symptoms Musculoskeletal: Reports: No Symptoms Skin: Reports: No Symptoms Psychiatric: Reports: No Symptoms Neurological: Reports: No Symptoms Hematologic/Lymphatic: Reports: No Symptoms Immunologic: Reports: No Symptoms L&D Exam - Exam Exam: See Below - Vital Signs Weight: 74.843 kg - OB Specific Contraction Intensity: Mild Movement: Active Heart Tones: Present Heart Rate (FHR) Variability: Moderate (6-25 bmp) Presentation: Vertex - Nunez Score Nunez Score Cervix Position: Posterior Nunez Score Consistency: Soft Nunez Score Effacement: 0-30% Nunez Score Dilation: Closed Nunez Score 's Station: -2 Nunez Score Total: 3 - Exam General: Alert, Oriented, Cooperative Lungs: Clear to Auscultation, Normal Respiratory Effort Cardiovascular: Regular Rate, Regular Rhythm, Normal S1, Normal S2 GI/Abdominal Exam: Soft, Non-Tender Rectal Exam: Deferred Genitourinary: Normal external exam, Normal bimanual exam. No: Cervical fluid, Vaginal bleeding Back Exam: Normal Inspection, Full Range of Motion Extremities: Normal Inspection, Normal Range of Motion, Non-Tender, No Pedal Edema Skin: Warm, Dry, Intact Neurological: Cranial Nerves Intact, Strength Equal Bilateral, Normal Speech, Normal Tone Psychiatric: Alert, Normal Affect, Normal Mood - Patient Data Lab Results Last 24 hrs: Laboratory Results - last 24 hr 01/04/20 01/04/20 Range/Units 06:23 06:23 WBC 8.07 (4.0-11.0) K/uL RBC 4.45 (4.30-5.90) M/uL Hgb 11.2 L (12.0-16.0) g/dL Hct 34.0 L (36.0-46.0) % MCV 76.4 L (80.0-98.0) fL MCH 25.2 L (27.0-32.0) pg MCHC 32.9 (31.0-37.0) g/dL RDW Std Deviation 36.4 (28.0-62.0) fl RDW Coeff of [place] 13 (11.0-15.0) % Plt Count 135 L (150-400) K/uL MPV 10.80 (7.40-12.00) fL Nucleated RBC % 0.0 /100WBC Nucleated RBCs # 0 K/uL Blood Type O NEGATIVE Antibody Screen NEGATIVE Result Diagrams: 01/04/20 06:23 - Problem List (1) Supervision of normal IUP (intrauterine ) in multigravida SNOMED Code(s): 390292733, 325190517, 597046474 ICD Code: Z34.80 - ENCOUNTER FOR SUPRVSN OF NORMAL , UNSP TRIMESTER Status: Acute Priority: High Current Visit: Yes Qualifiers: Trimester: third trimester Qualified Code(s): Z34.83 - Encounter for supervision of other normal , third trimester Problem List Initiated/Reviewed/Updated: Yes Orders Last 24hrs: Active Orders 24 hr Category Date Time Status Patient Status [ADT] Routine ADT 01/04/20 05:23 Active Bedrest Bathroom Privileges [RC] ASDIRECTED Care 01/04/20 05:27 Active Communication Order [RC] ASDIRECTED Care 01/04/20 05:27 Active Communication Order [RC] ASDIRECTED Care 01/04/20 05:27 Active Communication Order [RC] ASDIRECTED Care 01/04/20 05:27 Active Heart Tones [RC] CONTINUOUS Care 01/04/20 05:23 Active Non Stress Test [RC] PER UNIT ROUTINE Care 01/04/20 05:23 Active May Shower [RC] ASDIRECTED Care 01/04/20 05:23 Active Notify Provider [RC] PRN Care 01/04/20 05:23 Active Notify Provider [RC] PRN Care 01/04/20 05:27 Active Notify Provider [RC] PRN Care 01/04/20 05:27 Active Notify Provider [RC] STAT Care 01/04/20 05:27 Active Up ad Nasrin [RC] ASDIRECTED Care 01/04/20 05:23 Active Vaginal Exam [RC] PRN Care 01/04/20 05:23 Active Vaginal Exam [RC] PRN Care 01/04/20 05:27 Active Vital Signs [RC] PER UNIT ROUTINE Care 01/04/20 05:23 Active Vital Signs [RC] PER UNIT ROUTINE Care 01/04/20 05:27 Active RPR (SYPHILIS SERO) W/ RFLX [REF] Routine Lab 01/04/20 06:23 Received Butorphanol [Stadol] Med 01/04/20 05:23 Active 1 mg IVPUSH Q1H PRN Carboprost Tromethamine [Hemabate DS] Med 01/04/20 05:23 Active 250 mcg IM ASDIRECTED PRN Lactated Ringers [Ringers, Lactated] 1,000 ml Med 01/04/20 05:30 Active IV ASDIRECTED Lidocaine 1% [Xylocaine 1%] Med 01/04/20 05:23 Active 50 ml INJECT ONETIME PRN Methylergonovine [Methergine] Med 01/04/20 05:23 Active 0.2 mg IM ASDIRECTED PRN Nalbuphine [Nubain] Med 01/04/20 05:23 Active 10 mg IVPUSH Q1H PRN Ondansetron [Zofran] Med 01/04/20 05:23 Active 4 mg IVPUSH Q6H PRN Oxytocin/0.9 % Sodium Chloride [Oxytocin 30 Unit/500 ML Med 01/04/20 05:30 Active -NS] 30 unit in 500 ml IV TITRATE Oxytocin/0.9 % Sodium Chloride [Oxytocin 30 Unit/500 ML Med 01/04/20 05:30 Active -NS] 30 unit in 500 ml IV TITRATE Sodium Chloride 0.9% [Normal Saline] Med 01/04/20 05:23 Active 10 ml IV ASDIRECTED PRN Sodium Chloride 0.9% [Saline Flush] Med 01/04/20 05:23 Active 10 ml FLUSH ASDIRECTED PRN Sodium Chloride 0.9% [Saline Flush] Med 01/04/20 05:23 Active 2.5 ml FLUSH ASDIRECTED PRN Terbutaline [Brethine] Med 01/04/20 05:26 Active 0.25 mg SUBCUT ASDIRECTED PRN Tranexamic Acid [Cyklokapron] 1,000 mg Med 01/04/20 05:23 Active Sodium Chloride 0.9% [Normal Saline] 100 ml IV ONETIME Water For Irrigation,Sterile [Sterile Water for Med 01/04/20 05:23 Active Irrigation] 1,000 ml IRR ASDIRECTED PRN miSOPROStoL [Cytotec] Med 01/04/20 05:23 Active 200 mcg PO ONETIME PRN miSOPROStoL [Cytotec] Med 01/04/20 05:26 Active 25 mcg VAG ONETIME PRN miSOPROStoL [Cytotec] Med 02/05/20 05:26 Active 25 mcg VAG Q4H PRN Scalp Electrode [WOMSER] Per Unit Routine Oth 01/04/20 05:23 Ordered Medication Administration Instruction [OM.PC] Q3H Oth 01/04/20 05:30 Ordered Peripheral IV Insertion Adult [OM.PC] Routine Oth 01/04/20 05:23 Ordered Resuscitation Status Routine Resus Stat 01/04/20 05:23 Ordered Medication Orders Butorphanol Tartrate (Stadol) 1 mg IVPUSH Q1H PRN PRN Reason: Pain Carboprost Tromethamine (Hemabate Ds) 250 mcg IM ASDIRECTED PRN PRN Reason: Post Hemorrhage Lactated Ringer's (Ringers, Lactated) 1,000 mls @ 150 mls/hr IV ASDIRECTED [facility] Last Admin: 01/04/20 06:22 Dose: 150 mls/hr Oxytocin/Sodium Chloride (Oxytocin 30 Unit/500 Ml-Ns) 30 unit in 500 mls @ 500 mls/hr IV TITRATE [facility] Tranexamic Acid 1,000 mg/ (Sodium Chloride) 110 mls @ 660 mls/hr IV ONETIME PRN PRN Reason: Bleeding Oxytocin/Sodium Chloride (Oxytocin 30 Unit/500 Ml-Ns) 30 unit in 500 mls @ 2 mls/hr IV TITRATE [facility]; Protocol Lidocaine HCl (Xylocaine 1%) 50 ml INJECT ONETIME PRN PRN Reason: Laceration repair Methylergonovine Maleate (Methergine) 0.2 mg IM ASDIRECTED PRN PRN Reason: Post Hemorrhage Misoprostol (Cytotec) 200 mcg PO ONETIME PRN PRN Reason: Post Hemorrhage Misoprostol (Cytotec) 25 mcg VAG ONETIME PRN PRN Reason: Cervical Ripening Last Admin: 01/04/20 07:05 Dose: 25 mcg Misoprostol (Cytotec) 25 mcg VAG Q4H PRN PRN Reason: Cervical Ripening Nalbuphine HCl (Nubain) 10 mg IVPUSH Q1H PRN PRN Reason: Pain (severe 7-10) Ondansetron HCl (Zofran) 4 mg IVPUSH Q6H PRN PRN Reason: Nausea/Vomiting Sodium Chloride (Saline Flush) 10 ml FLUSH ASDIRECTED PRN PRN Reason: Keep Vein Open Sodium Chloride (Saline Flush) 2.5 ml FLUSH ASDIRECTED PRN PRN Reason: Keep Vein Open Sodium Chloride (Normal Saline) 10 ml IV ASDIRECTED PRN PRN Reason: IV Use Sterile Water (Sterile Water For Irrigation) 1,000 ml IRR ASDIRECTED PRN PRN Reason: delivery Terbutaline Sulfate (Brethine) 0.25 mg SUBCUT ASDIRECTED PRN PRN Reason: Tacysystole Assessment/Plan Comment:: IOL A: 29yo EDC 01/04/2020 40 0/7wks O+, Rubella pending, GBS neg. IOL term P: Admit, cytotec to pitocin, anticipate . Dr Schofield updated
[2020-01-04] MEDS ORDERED: Misoprostol 25 MCG (1/4 of 100 MCG) Tab PO SCH (11:45)
[2020-01-04] MEDS ORDERED: Ropivacaine HCl/PF 100 ML ONE (16:50)
[2020-01-04] MEDS ORDERED: fentaNYL 100 MCG/2 ML SDV ONE (16:50)
--- NOTE | 2020-01-04 17:11 | PCM.PREANE ---
Preanesthetic Assessment - Anesthesia/Transfusion/Family Hx Anesthesia History: Prior Anesthesia Without Reaction Family History of Anesthesia Reaction: No Transfusion History: No Prior Transfusion(s) - Physical Assessment NPO Status Date: 01/04/20 NPO Status Time: 10:00 Height: 1.68 m Weight: 74.843 kg ASA Class: 1 - Lab Values: Laboratory Last Values WBC 8.07 K/uL (4.0-11.0) 01/04/20 06:23 RBC 4.45 M/uL (4.30-5.90) 01/04/20 06:23 Hgb 11.2 g/dL (12.0-16.0) L 01/04/20 06:23 Hct 34.0 % (36.0-46.0) L 01/04/20 06:23 MCV 76.4 fL (80.0-98.0) L 01/04/20 06:23 MCH 25.2 pg (27.0-32.0) L 01/04/20 06:23 MCHC 32.9 g/dL (31.0-37.0) 01/04/20 06:23 RDW Std Deviation 36.4 fl (28.0-62.0) 01/04/20 06:23 RDW Coeff of [place] 13 % (11.0-15.0) 01/04/20 06:23 Plt Count 135 K/uL (150-400) L 01/04/20 06:23 MPV 10.80 fL (7.40-12.00) 01/04/20 06:23 Nucleated RBC % 0.0 /100WBC 01/04/20 06:23 Nucleated RBCs # 0 K/uL 01/04/20 06:23 Rubella IgG Ab Index 66.9 IU/mL 01/04/20 06:32 Blood Type O NEGATIVE 01/04/20 06:23 Antibody Screen NEGATIVE 01/04/20 06:23 - Allergies Allergies/Adverse Reactions: Allergies Allergy/AdvReac Type Severity Reaction Status Date / Time No Known Allergies Allergy Verified 10/07/17 17:40 - Acknowledgements Anesthesia Type Planned: Epidural Pt an Appropriate Candidate for the Planned Anesthesia: Yes Alternatives and Risks of Anesthesia Discussed w Pt/Guardian: Yes Pt/Guardian Understands and Agrees with Anesthesia Plan: Yes PreAnesthesia Questionnaire HEENT History: Reports: None Cardiovascular History: Reports: Other (See Below) Other Cardiovascular History: POTS Respiratory History: Reports: None Gastrointestinal History: Reports: GERD Genitourinary History: Reports: None 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: Musculoskeletal History: Reports: None Neurological History: Reports: Concussion Psychiatric History: Reports: Anxiety Endocrine/Metabolic History: Reports: None Hematologic History: Reports: None Immunologic History: Reports: None Oncologic (Cancer) History: Reports: None Dermatologic History: Reports: None - Infectious Disease History Infectious Disease History: Reports: Chicken Pox - Past Surgical History HEENT Surgical History: Reports: Other (See Below) Other HEENT Surgeries/Procedures: [place] teeth extraction GI Surgical History: Reports: None Female Surgical History: Reports: Breast Implant Musculoskeletal Surgical History: Reports: None - SUBSTANCE USE Smoking Status *Q: Never Smoker Second Hand Smoke Exposure: No Recreational Drug Use History: No - HOME MEDS Home Medications: Home Meds Metoprolol Tartrate 12.5 mg PO DAILY 01/04/20 [History] - CURRENT (IN HOUSE) MEDS Current Meds: Current Medications Butorphanol Tartrate (Stadol) 1 mg IVPUSH Q1H PRN PRN Reason: Pain Carboprost Tromethamine (Hemabate Ds) 250 mcg IM ASDIRECTED PRN PRN Reason: Post Hemorrhage Lactated Ringer's (Ringers, Lactated) 1,000 mls @ 150 mls/hr IV ASDIRECTED [place] Last Admin: 01/04/20 16:27 Dose: 999 mls/hr Oxytocin/Sodium Chloride (Oxytocin 30 Unit/500 Ml-Ns) 30 unit in 500 mls @ 500 mls/hr IV TITRATE [facility] Tranexamic Acid 1,000 mg/ (Sodium Chloride) 110 mls @ 660 mls/hr IV ONETIME PRN PRN Reason: Bleeding Oxytocin/Sodium Chloride (Oxytocin 30 Unit/500 Ml-Ns) 30 unit in 500 mls @ 2 mls/hr IV TITRATE [facility]; Protocol Lidocaine HCl (Xylocaine 1%) 50 ml INJECT ONETIME PRN PRN Reason: Laceration repair Methylergonovine Maleate (Methergine) 0.2 mg IM ASDIRECTED PRN PRN Reason: Post Hemorrhage Misoprostol (Cytotec) 200 mcg PO ONETIME PRN PRN Reason: Post Hemorrhage Misoprostol (Cytotec) 25 mcg VAG ONETIME PRN PRN Reason: Cervical Ripening Last Admin: 01/04/20 07:05 Dose: 25 mcg Misoprostol (Cytotec) 25 mcg VAG Q4H PRN PRN Reason: Cervical Ripening Last Admin: 01/04/20 11:44 Dose: 25 mcg Misoprostol (Cytotec) 25 mcg PO Q4H [facility] Last Admin: 01/04/20 11:39 Dose: 25 mcg Nalbuphine HCl (Nubain) 10 mg IVPUSH Q1H PRN PRN Reason: Pain (severe 7-10) Ondansetron HCl (Zofran) 4 mg IVPUSH Q6H PRN PRN Reason: Nausea/Vomiting Sodium Chloride (Saline Flush) 10 ml FLUSH ASDIRECTED PRN PRN Reason: Keep Vein Open Sodium Chloride (Saline Flush) 2.5 ml FLUSH ASDIRECTED PRN PRN Reason: Keep Vein Open Sodium Chloride (Normal Saline) 10 ml IV ASDIRECTED PRN PRN Reason: IV Use Sterile Water (Sterile Water For Irrigation) 1,000 ml IRR ASDIRECTED PRN PRN Reason: delivery Terbutaline Sulfate (Brethine) 0.25 mg SUBCUT ASDIRECTED PRN PRN Reason: Tacysystole Discontinued Medications Fentanyl (Sublimaze) Confirm Administered Dose 100 mcg .ROUTE .STK-MED ONE Stop: 01/04/20 16:51 Ropivacaine (Naropin 0.2%) Confirm Administered Dose 100 mls @ as directed .ROUTE .STK-MED ONE Stop: 01/04/20 16:51 Misoprostol (Cytotec) 25 mcg PO ONETIME ONE Stop: 01/04/20 05:29 Last Admin: 01/04/20 07:08 Dose: 25 mcg
--- NOTE | 2020-01-04 17:14 | PCM.PRNOTE ---
- Free Text/Narrative Note: Anes Note Patietn requests epidural for L&D> Sitting posiiton, Level L2-L3 midline approach. Sterile technique, chloraprep scrub to lumbar area. Sterile fenestrated drape applied. Epidural space easily achieved single attempt with ease using DIOMEDES technique. DIOMEDES at 3 cm. Cath threaded 5 cm with ease Cath secured at skin at 9 cm. Cath secured with sterile clear adhesive dressing. 1656 Test 3 cc 1.5% lido with epi negative. 1659 Load 10 cc 0.2% ropivicaine with 1 mcg ccfentanyl in slow divided doses. Pump started with 90 cc same solution at 8 cc hr with 6 cc q 20 min prn bolus. Antoinette well. Time with patient [id number] Bridger Bowden CRNA
--- NOTE | 2020-01-04 19:19 | PCM.DEL ---
L & D Note - General Info Date of Service: 01/04/20 Mother's Due Date: 01/04/20 - Delivery Note Labor: Spontaneous Delivery Outcome: Livebirth Infant Delivery Method: Spontaneous Vaginal Delivery-Single Infant Delivery Mode: Spontaneous Presentation: Vertex Nuchal Cord: Present Anesthesia Type: Epidural Amniotic Fluid Description: Clear Episiotomy Type: None Laceration: 1st Degree Suture type: Vicryl Suture size: 3-0 Placenta: Intact, Spontaneous Cord: 3 Vessels Estimated Blood Loss: 100 Resuscitation Needed: No Score 1 min: 8 Score 5 min: 9 Second Stage Interventions: Reports: Pushing, Pulls Own Legs Back Delivery Comments (Free Text/Narrative):: Pt comes in for IOL. Follow in clinic by myself. of viable male. Head delivered with good pushing, nuchal x1 reduced over head, shoulders and body followed easily. Infant with spont cry placed on mothers abd with RN at for evaluation. Delayed cord clamping. Pitocin to IVF. Small 1st degree lac perineal repaired with 3-0 eben. Placenta delivered grossly intact. Cord blood collected. EBL 100, 8/9, Wt:7lb 10oz. Mom and baby stable. Induction Criteria - Nunez Score Nunez Score Dilation: Closed Nunez Score Effacement: 0-30% Nunez Score 's Station: -2 Nunez Score Consistency: Soft Nuenz Score Cervix Position: Posterior Nunez Score Total: 3 Nunez Score Presenting Part: Reports: Cephalic - Induction Gestational Age >/= 39 wks: Yes Estimated Pelvis: Reports: Adequate Reassuring Monitoring Strip: Yes Absence of Tachy Systole: Yes - General Info Date of Service: 01/04/20 Admission Dx/Problem (Free Text): Patient Status Order with Admit Dx/Problem 01/04/20 05:23 Patient Status [ADT] Routine Admission Diagnosis/Problem Admission Diagnosis/Problem 01/04/20 08:21 29yo EDC 01/04/2020 40 0/7wks O+, Rubella pending, GBS neg. IOL term 01/04/20 08:24 Functional Status: Reports: Pain Controlled - Review of Systems General: Reports: No Symptoms HEENT: Reports: No Symptoms Pulmonary: Reports: No Symptoms Cardiovascular: Reports: No Symptoms Gastrointestinal: Reports: No Symptoms Genitourinary: Reports: No Symptoms Musculoskeletal: Reports: No Symptoms Skin: Reports: No Symptoms Neurological: Reports: No Symptoms Psychiatric: Reports: No Symptoms - Patient Data Weight - Most Recent: 74.843 kg Lab Results Last 24 Hours: Laboratory Results - last 24 hr 01/04/20 01/04/20 01/04/20 Range/Units 06:23 06:23 06:32 WBC 8.07 (4.0-11.0) K/uL RBC 4.45 (4.30-5.90) M/uL Hgb 11.2 L (12.0-16.0) g/dL Hct 34.0 L (36.0-46.0) % MCV 76.4 L (80.0-98.0) fL MCH 25.2 L (27.0-32.0) pg MCHC 32.9 (31.0-37.0) g/dL RDW Std Deviation 36.4 (28.0-62.0) fl RDW Coeff of [place] 13 (11.0-15.0) % Plt Count 135 L (150-400) K/uL MPV 10.80 (7.40-12.00) fL Nucleated RBC % 0.0 /100WBC Nucleated RBCs # 0 K/uL Rubella IgG Ab Index 66.9 IU/mL Blood Type O NEGATIVE Antibody Screen NEGATIVE Med Orders - Current: Current Medications Butorphanol Tartrate (Stadol) 1 mg IVPUSH Q1H PRN PRN Reason: Pain Carboprost Tromethamine (Hemabate Ds) 250 mcg IM ASDIRECTED PRN PRN Reason: Post Hemorrhage Lactated Ringer's (Ringers, Lactated) 1,000 mls @ 150 mls/hr IV ASDIRECTED [place] Last Admin: 01/04/20 17:38 Dose: 999 mls/hr Oxytocin/Sodium Chloride (Oxytocin 30 Unit/500 Ml-Ns) 30 unit in 500 mls @ 500 mls/hr IV TITRATE [facility] Tranexamic Acid 1,000 mg/ (Sodium Chloride) 110 mls @ 660 mls/hr IV ONETIME PRN PRN Reason: Bleeding Oxytocin/Sodium Chloride (Oxytocin 30 Unit/500 Ml-Ns) 30 unit in 500 mls @ 2 mls/hr IV TITRATE [facility]; Protocol Lidocaine HCl (Xylocaine 1%) 50 ml INJECT ONETIME PRN PRN Reason: Laceration repair Methylergonovine Maleate (Methergine) 0.2 mg IM ASDIRECTED PRN PRN Reason: Post Hemorrhage Misoprostol (Cytotec) 200 mcg PO ONETIME PRN PRN Reason: Post Hemorrhage Misoprostol (Cytotec) 25 mcg VAG ONETIME PRN PRN Reason: Cervical Ripening Last Admin: 01/04/20 07:05 Dose: 25 mcg Misoprostol (Cytotec) 25 mcg VAG Q4H PRN PRN Reason: Cervical Ripening Last Admin: 01/04/20 11:44 Dose: 25 mcg Misoprostol (Cytotec) 25 mcg PO Q4H [facility] Last Admin: 01/04/20 11:39 Dose: 25 mcg Nalbuphine HCl (Nubain) 10 mg IVPUSH Q1H PRN PRN Reason: Pain (severe 7-10) Ondansetron HCl (Zofran) 4 mg IVPUSH Q6H PRN PRN Reason: Nausea/Vomiting Sodium Chloride (Saline Flush) 10 ml FLUSH ASDIRECTED PRN PRN Reason: Keep Vein Open Sodium Chloride (Saline Flush) 2.5 ml FLUSH ASDIRECTED PRN PRN Reason: Keep Vein Open Sodium Chloride (Normal Saline) 10 ml IV ASDIRECTED PRN PRN Reason: IV Use Sterile Water (Sterile Water For Irrigation) 1,000 ml IRR ASDIRECTED PRN PRN Reason: delivery Terbutaline Sulfate (Brethine) 0.25 mg SUBCUT ASDIRECTED PRN PRN Reason: Tacysystole Discontinued Medications Fentanyl (Sublimaze) Confirm Administered Dose 100 mcg .ROUTE .STK-MED ONE Stop: 01/04/20 16:51 Ropivacaine (Naropin 0.2%) Confirm Administered Dose 100 mls @ as directed .ROUTE .STK-MED ONE Stop: 01/04/20 16:51 Misoprostol (Cytotec) 25 mcg PO ONETIME ONE Stop: 01/04/20 05:29 Last Admin: 01/04/20 07:08 Dose: 25 mcg - Exam General: Alert, Oriented, Cooperative, No Acute Distress Lungs: Normal Respiratory Effort GI/Abdominal Exam: Soft (Female) Exam: Normal External Exam, Normal Bimanual Exam, Vaginal Bleeding. No: Cervical Lesions Back Exam: Full Range of Motion Extremities: Normal Inspection, No Pedal Edema Skin: Warm, Dry, Intact Wound/Incisions: Healing Well Neurological: No New Focal Deficit, Normal Speech, Normal Tone Psy/Mental Status: Alert, Normal Affect, Normal Mood - Problem List & Annotations (1) Supervision of normal IUP (intrauterine ) in multigravida SNOMED Code(s): 560455627, 261416925, 679347295 Code(s): Z34.80 - ENCOUNTER FOR SUPRVSN OF NORMAL , UNSP TRIMESTER Status: Acute Priority: High Current Visit: Yes Qualifiers: Trimester: third trimester Qualified Code(s): Z34.83 - Encounter for supervision of other normal , third trimester (2) (normal spontaneous vaginal delivery) SNOMED Code(s): 08613420, 705945702 Code(s): O80 - ENCOUNTER FOR FULL-TERM UNCOMPLICATED DELIVERY Status: Acute Priority: High Current Visit: Yes - Problem List Review Problem List Initiated/Reviewed/Updated: Yes - My Orders Last 24 Hours: My Active Orders 01/04/20 05:23 Patient Status [ADT] Routine Heart Tones [RC] CONTINUOUS Non Stress Test [RC] PER UNIT ROUTINE May Shower [RC] ASDIRECTED Notify Provider [RC] PRN Up ad Nasrin [RC] ASDIRECTED Vaginal Exam [RC] PRN Butorphanol [Stadol] 1 mg IVPUSH Q1H PRN Carboprost Tromethamine [Hemabate DS] 250 mcg IM ASDIRECTED PRN Lidocaine 1% [Xylocaine 1%] 50 ml INJECT ONETIME PRN Methylergonovine [Methergine] 0.2 mg IM ASDIRECTED PRN Nalbuphine [Nubain] 10 mg IVPUSH Q1H PRN Ondansetron [Zofran] 4 mg IVPUSH Q6H PRN Sodium Chloride 0.9% [Normal Saline] 10 ml IV ASDIRECTED PRN Sodium Chloride 0.9% [Saline Flush] 10 ml FLUSH ASDIRECTED PRN Sodium Chloride 0.9% [Saline Flush] 2.5 ml FLUSH ASDIRECTED PRN Tranexamic Acid [Cyklokapron] 1,000 mg Sodium Chloride 0.9% [Normal Saline] 100 ml IV ONETIME Water For Irrigation,Sterile [Sterile Water for Irrigation] 1,000 ml IRR ASDIRECTED PRN miSOPROStoL [Cytotec] 200 mcg PO ONETIME PRN Scalp Electrode [WOMSER] Per Unit Routine Peripheral IV Insertion Adult [OM.PC] Routine Resuscitation Status Routine 01/04/20 05:26 Terbutaline [Brethine] 0.25 mg SUBCUT ASDIRECTED PRN miSOPROStoL [Cytotec] 25 mcg VAG ONETIME PRN miSOPROStoL [Cytotec] 25 mcg VAG Q4H PRN 01/04/20 05:27 Bedrest Bathroom Privileges [RC] ASDIRECTED Communication Order [RC] ASDIRECTED Communication Order [RC] ASDIRECTED Communication Order [RC] ASDIRECTED Notify Provider [RC] PRN Notify Provider [RC] PRN Notify Provider [RC] STAT Vital Signs [RC] PER UNIT ROUTINE 01/04/20 05:30 Lactated Ringers [Ringers, Lactated] 1,000 ml IV ASDIRECTED Oxytocin/0.9 % Sodium Chloride [Oxytocin 30 Unit/500 ML-NS] 30 unit in 500 ml IV TITRATE Oxytocin/0.9 % Sodium Chloride [Oxytocin 30 Unit/500 ML-NS] 30 unit in 500 ml IV TITRATE Medication Administration Instruction [OM.PC] Q3H 01/04/20 06:23 RPR (SYPHILIS SERO) W/ RFLX [REF] Routine 01/04/20 11:45 miSOPROStoL [Cytotec] 25 mcg PO Q4H - Plan Plan:: IOL A: 29yo EDC 01/04/2020 40 0/7wks O+, Rubella pending, GBS neg. IOL term P: Admit, cytotec to pitocin, anticipate . Dr Schofield updated Delivery A: of male, APGARS 8/9, Wt: 7lb 10oz, 1st deg lac with repair, EBL 100cc Stable P: Routine pp plan of care
[2020-01-04] MEDS ORDERED: Docusate Sodium 100 MG Cap PO PRN (19:24)
[2020-01-04] MEDS ORDERED: Acetaminophen 500 MG Tab PO PRN ×2 (19:24)
[2020-01-04] MEDS ORDERED: Bisacodyl 10 MG Supp RECTAL PRN (19:24)
[2020-01-04] MEDS ORDERED: Benzocaine/Menthol 20%-0.5% Spray 78 GM Cannister TOP PRN ×2 (19:24→19:28)
[2020-01-04] MEDS ORDERED: oxyCODONE 5 MG Tab PO PRN (19:24)
[2020-01-04] MEDS ORDERED: Ibuprofen 800 MG Tab PO PRN (19:24)
[2020-01-04] MEDS ORDERED: Ibuprofen 400 MG Tab PO PRN (19:24)
[2020-01-04] MEDS ORDERED: Witch Hazel Medicated Pads 40/Jar TOP PRN (19:24)
[2020-01-04] MEDS ORDERED: Lanolin 100% Cream 7 GM Tube TOP PRN (19:24)
--- NOTE | 2020-01-05 07:03 | PCM48HPAN ---
Post Anesthesia Note - EVALUATION WITHIN 48HRS OF ANESTHETIC Vital Signs in Normal Range: Yes Patient Participated in Evaluation: Yes Respiratory Function Stable: Yes Airway Patent: Yes Cardiovascular Function Stable: Yes Hydration Status Stable: Yes Pain Control Satisfactory: Yes Nausea and Vomiting Control Satisfactory: Yes Mental Status Recovered: Yes Vital Signs: Last Vital Signs Temp 36.6 C 01/05/20 04:15 Pulse 74 01/05/20 04:15 Resp 15 01/05/20 04:15 BP 105/62 01/05/20 04:15 Pulse Ox 97 01/05/20 04:15
[2020-01-05] MEDS ORDERED: Desflurane 240 ML Bottle ONE (07:09)
--- NOTE | 2020-01-05 09:01 | PCM.DCSUM1 ---
Discharge Summary - Hospital Course Free Text/Narrative:: Discharge home with . Follow up in 6 weeks for visit. Diagnosis: Stroke: No - Discharge Data Discharge Date: 01/05/20 Discharge Disposition: Home, Self-Care 01 Condition: Good - Referral to Home Health Primary Care Physician: PCP None - Discharge Diagnosis/Problem(s) (1) Supervision of normal IUP (intrauterine ) in multigravida SNOMED Code(s): 420606488, 269393086, [id number] ICD Code: Z34.80 - ENCOUNTER FOR SUPRVSN OF NORMAL , UNSP TRIMESTER Status: Acute Priority: High Current Visit: Yes Qualifiers: Trimester: third trimester Qualified Code(s): Z34.83 - Encounter for supervision of other normal , third trimester (2) (normal spontaneous vaginal delivery) SNOMED Code(s): 45879550, 568242994 ICD Code: O80 - ENCOUNTER FOR FULL-TERM UNCOMPLICATED DELIVERY Status: Acute Priority: High Current Visit: Yes - Patient Instructions Diet: Usual Diet as Tolerated Activity: As Tolerated, No Strenuous Activities, Rest and Relax Today Driving: May Drive Today Showering/Bathing: May Shower Notify Provider of: Fever, Increased Pain, Swelling and Redness, Nausea and/or Vomiting Other/Special Instructions: Discharge home with infant. Follow up in 6 weeks for visit. - Discharge Plan *PRESCRIPTION DRUG MONITORING PROGRAM REVIEWED*: Not Applicable *COPY OF PRESCRIPTION DRUG MONITORING REPORT IN PATIENT PAUL: Not Applicable Home Medications: Home Meds Metoprolol Tartrate 12.5 mg PO DAILY 01/04/20 [History] Oxygen Therapy Mode: Room Air Referrals: [facility] [Outside] Aimee Mullen CNM [Mid-] - 02/15/20 1:30 pm - Discharge Summary/Plan Comment DC Time >30 min.: Yes - General Info Date of Service: 01/05/20 Admission Dx/Problem (Free Text: Patient Status Order with Admit Dx/Problem 01/04/20 05:23 Patient Status [ADT] Routine Admission Diagnosis/Problem Admission Diagnosis/Problem 01/04/20 08:21 29yo EDC 01/04/2020 40 0/7wks O+, Rubella pending, GBS neg. IOL term 01/04/20 08:24 Functional Status: Reports: Pain Controlled, Tolerating Diet, Ambulating, Urinating - Review of Systems General: Reports: No Symptoms HEENT: Reports: No Symptoms Pulmonary: Reports: No Symptoms Cardiovascular: Reports: No Symptoms Gastrointestinal: Reports: No Symptoms Genitourinary: Reports: No Symptoms Musculoskeletal: Reports: No Symptoms Skin: Reports: No Symptoms Neurological: Reports: No Symptoms Psychiatric: Reports: No Symptoms - Patient Data Vitals - Most Recent: Last Vital Signs Temp 36.6 C 01/05/20 04:15 Pulse 74 01/05/20 04:15 Resp 15 01/05/20 04:15 BP 105/62 01/05/20 04:15 Pulse Ox 97 01/05/20 04:15 Weight - Most Recent: 74.843 kg Lab Results - Last 24 hrs: Laboratory Results - last 24 hr 01/04/20 Range/Units 06:32 Rubella IgG Ab Index 66.9 IU/mL Med Orders - Current: Current Medications Acetaminophen (Tylenol Extra Strength) 500 mg PO Q4H PRN PRN Reason: Pain Acetaminophen (Tylenol Extra Strength) 1,000 mg PO Q4H PRN PRN Reason: Pain Last Admin: 01/04/20 22:16 Dose: 1,000 mg Benzocaine/Menthol (Dermoplast Pain Relief 20%-0.5% [place]) 0 gm TOP ASDIRECTED PRN PRN Reason: Perineal Comfort Measure Last Admin: 01/04/20 20:17 Dose: 1 can Bisacodyl (Dulcolax) 10 mg RECTAL ONETIME PRN PRN Reason: Constipation Docusate Sodium (Colace) 100 mg PO BID PRN PRN Reason: Constipation Emollient Ointment (Lansinoh Hpa) 0 gm TOP ASDIRECTED PRN PRN Reason: Sore Nipples Ibuprofen (Motrin) 400 mg PO Q4H PRN PRN Reason: Pain Ibuprofen (Motrin) 800 mg PO Q6H PRN PRN Reason: Pain Oxycodone HCl (Oxycodone) 5 mg PO Q2H PRN PRN Reason: Pain Witch Edwina (Tucks) 1 pad TOP ASDIRECTED PRN PRN Reason: comfort care Last Admin: 01/04/20 20:17 Dose: 1 pad Discontinued Medications Benzocaine/Menthol (Dermoplast Pain Relief 20%-0.5% [place]) 78 gm TOP ASDIRECTED PRN PRN Reason: Perineal Comfort Measure Butorphanol Tartrate (Stadol) 1 mg IVPUSH Q1H PRN PRN Reason: Pain Carboprost Tromethamine (Hemabate Ds) 250 mcg IM ASDIRECTED PRN PRN Reason: Post Hemorrhage Desflurane (Suprane) Confirm Administered Dose 240 ml .ROUTE .STK-MED ONE Stop: 01/05/20 07:10 Fentanyl (Sublimaze) Confirm Administered Dose 100 mcg .ROUTE .STK-MED ONE Stop: 01/04/20 16:51 Lactated Ringer's (Ringers, Lactated) 1,000 mls @ 150 mls/hr IV ASDIRECTED MILEY Last Admin: 01/04/20 17:38 Dose: 999 mls/hr Oxytocin/Sodium Chloride (Oxytocin 30 Unit/500 Ml-Ns) 30 unit in 500 mls @ 500 mls/hr IV TITRATE MILEY Tranexamic Acid 1,000 mg/ (Sodium Chloride) 110 mls @ 660 mls/hr IV ONETIME PRN PRN Reason: Bleeding Oxytocin/Sodium Chloride (Oxytocin 30 Unit/500 Ml-Ns) 30 unit in 500 mls @ 2 mls/hr IV TITRATE MILEY; Protocol Ropivacaine (Naropin 0.2%) Confirm Administered Dose 100 mls @ as directed .ROUTE .STArtisoft-MED ONE Stop: 01/04/20 16:51 Lidocaine HCl (Xylocaine 1%) 50 ml INJECT ONETIME PRN PRN Reason: Laceration repair Methylergonovine Maleate (Methergine) 0.2 mg IM ASDIRECTED PRN PRN Reason: Post Hemorrhage Misoprostol (Cytotec) 200 mcg PO ONETIME PRN PRN Reason: Post Hemorrhage Misoprostol (Cytotec) 25 mcg VAG ONETIME PRN PRN Reason: Cervical Ripening Last Admin: 01/04/20 07:05 Dose: 25 mcg Misoprostol (Cytotec) 25 mcg VAG Q4H PRN PRN Reason: Cervical Ripening Last Admin: 01/04/20 11:44 Dose: 25 mcg Misoprostol (Cytotec) 25 mcg PO ONETIME ONE Stop: 01/04/20 05:29 Last Admin: 01/04/20 07:08 Dose: 25 mcg Misoprostol (Cytotec) 25 mcg PO Q4H MILEY Last Admin: 01/04/20 11:39 Dose: 25 mcg Nalbuphine HCl (Nubain) 10 mg IVPUSH Q1H PRN PRN Reason: Pain (severe 7-10) Ondansetron HCl (Zofran) 4 mg IVPUSH Q6H PRN PRN Reason: Nausea/Vomiting Sodium Chloride (Saline Flush) 10 ml FLUSH ASDIRECTED PRN PRN Reason: Keep Vein Open Sodium Chloride (Saline Flush) 2.5 ml FLUSH ASDIRECTED PRN PRN Reason: Keep Vein Open Sodium Chloride (Normal Saline) 10 ml IV ASDIRECTED PRN PRN Reason: IV Use Sterile Water (Sterile Water For Irrigation) 1,000 ml IRR ASDIRECTED PRN PRN Reason: delivery Terbutaline Sulfate (Brethine) 0.25 mg SUBCUT ASDIRECTED PRN PRN Reason: Tacysystole - Exam General: Reports: Alert, Oriented, Cooperative Lungs: Reports: Clear to Auscultation, Normal Respiratory Effort. Denies: Decreased Breath Sounds Cardiovascular: Reports: Regular Rate, Regular Rhythm. Denies: No Murmurs GI/Abdominal Exam: Soft, Non-Tender (Female) Exam: Deferred, Vaginal Bleeding Rectal (Female) Exam: Deferred Back Exam: Reports: Normal Inspection, Full Range of Motion Extremities: Normal Inspection, Normal Range of Motion, Non-Tender, No Pedal Edema Skin: Reports: Warm, Dry, Intact Wound/Incisions: Reports: Healing Well Neurological: Reports: No New Focal Deficit, Normal Speech, Normal Tone, Strength Equal Bilateral, Sensation Intact Psy/Mental Status: Reports: Alert, Normal Affect, Normal Mood
== END 2020-01-05 21:31 | disposition home or self-care (01) | DRG 560 ==
LOC: MW.OBCHECK 05:06 → MW.OB 05:08 → MW.OBCHECK 05:23 → OBSVTOIN 19:26 → MW.OB 22:41
PROVIDERS: ADMIT Obstetrics & Gynecology; ATTEND Obstetrics & Gynecology
PROC: 10E0XZZ Delivery of Products of Conception, External Approach (ICD-10-PCS; principal; 2020-01-04)
PROC: 0HQ9XZZ Repair Perineum Skin, External Approach (ICD-10-PCS; 2020-01-04)
PROC: 3E0R3BZ Introduction of Anesthetic Agent into Spinal Canal, Percutaneous Approach (ICD-10-PCS; 2020-01-04)
PROC: 00HU33Z Insertion of Infusion Device into Spinal Canal, Percutaneous Approach (ICD-10-PCS; 2020-01-04)
DX: O48.0 Post-term pregnancy (principal); O69.81X0 Labor and delivery complicated by cord around neck, without compression, not applicable or unspecified; Z3A.40 40 weeks gestation of pregnancy; Z37.0 Single live birth; Z79.899 Other long term (current) drug therapy; O70.0 First degree perineal laceration during delivery
CPT/HCPCS: 01967; 36415; 36430; 51702; 59025; 59409; 85027; 85460; 86592; 86762; 86850; 86900; 86901; A9270-GY; J2792; J2795; J3010; J7120

== ENCOUNTER 2022-11-12 05:05 | Inpatient (IN) | payer BC ==
[2022-11-12] MEDS ORDERED: Sodium Chloride 0.9% 10 ML Syringe FLUSH PRN (05:45)
[2022-11-12] MEDS ORDERED: Sodium Chloride 0.9% 2.5 ML Syringe FLUSH PRN (05:45)
[2022-11-12] MEDS ORDERED: Tranexamic Acid 1,000 MG in Sodium Chloride 0.9% 100 ML IV PRN ×2 (05:45→13:53)
[2022-11-12] MEDS ORDERED: Misoprostol 200 MCG Tab PO PRN (05:45)
[2022-11-12] MEDS ORDERED: Ondansetron 4 MG/2 ML SDV IVPUSH PRN (05:45)
[2022-11-12] MEDS ORDERED: Lidocaine 1% 50 ML MDV INJECT PRN (05:45)
[2022-11-12] MEDS ORDERED: Oxytocin/0.9 % Sodium Chloride 30 UNIT/500 ML BAG IV SCH ×2 (05:45)
[2022-11-12] MEDS ORDERED: Water For Irrigation,Sterile 1,000 ML Container IRR PRN (05:45)
[2022-11-12] MEDS ORDERED: Terbutaline 1 MG/ML SDV SUBCUT PRN (05:45)
[2022-11-12] MEDS ORDERED: Sodium Chloride 0.9% 20 ML SDV IV PRN (05:45)
[2022-11-12] MEDS ORDERED: Carboprost Tromethamine 250 MCG/1 ML Amp IM PRN (05:45)
[2022-11-12] MEDS ORDERED: Butorphanol 1 MG/ML SDV IVPUSH PRN (05:45)
[2022-11-12] MEDS ORDERED: Methylergonovine 0.2 MG/1 ML Amp IM PRN ×2 (05:45→13:53)
[2022-11-12] MEDS: Lactated Ringers 1,000 ML IV SCH ×2 (06:29→14:30)
[2022-11-12] MEDS ORDERED: ePHEDrine 50 MG/ML SDV IVPUSH PRN ×2 (07:34)
[2022-11-12] MEDS ORDERED: Phenylephrine HCl In 0.9% NaCl 1 MG/10 ML Vial IVPUSH PRN (07:34)
[2022-11-12] MEDS ORDERED: Phenylephrine HCl In 0.9% NaCl 1 MG/10 ML Vial IVPUSH SCH (07:45)
[2022-11-12] MEDS ORDERED: Ropivacaine HCl/PF 400 MG in Premix Bag 1 BAG EPIDUR SCH (07:45)
[2022-11-12] MEDS ORDERED: Ibuprofen 400 MG Tab PO PRN (13:53)
[2022-11-12] MEDS ORDERED: Bisacodyl 10 MG Supp RECTAL PRN (13:53)
[2022-11-12] MEDS ORDERED: Lanolin 100% Cream 7 GM Tube TOP PRN (13:53)
[2022-11-12] MEDS ORDERED: Docusate Sodium 100 MG Cap PO PRN (13:53)
[2022-11-12] MEDS ORDERED: Witch Hazel Medicated Pads 40/Jar TOP PRN (13:53)
[2022-11-12] MEDS ORDERED: Ibuprofen 800 MG Tab PO PRN (13:53)
[2022-11-12] MEDS ORDERED: Benzocaine/Menthol 20%-0.5% Spray 78 GM Cannister TOP PRN (13:53)
[2022-11-12] MEDS ORDERED: Acetaminophen 500 MG Tab PO PRN ×2 (13:53)
[2022-11-12] MEDS ORDERED: Ampicillin/Sulbactam Na 3 GM in Sodium Chloride 0.9% 100 ML IV ONE (14:00)
[2022-11-12] MEDS: Ampicillin/Sulbactam Na 1.5 GM in Sodium Chloride 0.9% 50 ML IV SCH (20:20)
[2022-11-13] MEDS: Ampicillin/Sulbactam Na 1.5 GM in Sodium Chloride 0.9% 50 ML IV SCH ×2 (02:08→08:27)
== END 2022-11-13 16:11 | disposition home or self-care (01) | DRG 560 ==
LOC: MW.OBCHECK 05:05 → MW.OB 05:07 → MW.OBCHECK 05:42 → MW.OB 05:45 → OBSVTOIN 13:20 → MW.OB 20:31
PROVIDERS: ADMIT Obstetrics & Gynecology; ATTEND Obstetrics & Gynecology
PROC: 10E0XZZ Delivery of Products of Conception, External Approach (ICD-10-PCS; principal; 2022-11-12)
PROC: 10907ZC Drainage of Amniotic Fluid, Therapeutic from Products of Conception, Via Natural or Artificial Opening (ICD-10-PCS; 2022-11-12)
PROC: 3E033VJ Introduction of Other Hormone into Peripheral Vein, Percutaneous Approach (ICD-10-PCS; 2022-11-12)
PROC: 0HQ9XZZ Repair Perineum Skin, External Approach (ICD-10-PCS; 2022-11-12)
PROC: 3E0R3BZ Introduction of Anesthetic Agent into Spinal Canal, Percutaneous Approach (ICD-10-PCS; 2022-11-12)
PROC: 00HU33Z Insertion of Infusion Device into Spinal Canal, Percutaneous Approach (ICD-10-PCS; 2022-11-12)
DX: O99.62 Diseases of the digestive system complicating childbirth (principal); K21.9 Gastro-esophageal reflux disease without esophagitis; O70.0 First degree perineal laceration during delivery; Z37.0 Single live birth; Z3A.39 39 weeks gestation of pregnancy; Z20.822 Contact with and (suspected) exposure to COVID-19
CPT/HCPCS: 36415; 51702; 59025; 59409; 82803; 85014; 85018; 85025; 86592; 86850; 86870; 86900; 86901; A9270-GY; J0295; J2405; J2590; J7120; U0002